=== PATIENT | female | born 1990 | race Caucasian/White ===

== ENCOUNTER 2017-04-15 08:14 | Inpatient (IN) ==
--- OUTSIDE RECORDS SUMMARY | 2017-04-15 08:19 | External Medical Summary | Continuity of Care Document ---
:1990 Author Organization [facility] Address [address] [place], [place] [id number] Phone Support Name Relationship Address Phone Christian Hernandez spouse [address] [phone] [place] [address] Allergies, Adverse Reactions, Alerts Substance Reaction Severity Status amoxicillin rash Unknown Active Medications Medication Instructions Dosage Effective Dates Status Comments (start - stop) Diclegis 10 mg-10 take 1 tablet by - Active mg tablet,delayed oral route every release day in the morning, 1 tablet in the mid-afternoon, and 2 tablets at bedtime butalbital-acetami take 1 - 2 capsule Not Available - Active nophen-caffeine 50 by oral route every mg-300 mg-40 mg 6 hours as needed capsule not to exceed 6 capsules per 24hrs Complete - Active 14 mg-400 mcg tablet Problems Condition Effective Dates (start - stop) Clinical Status Encntr for suprvsn of normal first - preg, third trimester 32 weeks gestation of - Encntr screen for infections w sexl - mode of transmiss Encounter for screening for oth - infec/parastc diseases Encntr for suprvsn of normal first - preg, first trimester Encounter for screening of - mother 9 weeks gestation of - Encntr for suprvsn of normal first - preg, second trimester Fam hx of congen malform, deformations - and chromsoml abnlt 22 weeks gestation of - Unspec ovarian cyst, unspec side - Fam hx of congen malform, deformations - and chromsoml abnlt 26 weeks gestation of - Unspec ovarian cyst, unspec side - Encntr for suprvsn of normal first - preg, second trimester 26 weeks gestation of - Oth noninflammatory disorders of vulva and perineum Encntr for kinesiologist exam (general) (routine) w abnormal findings Encounter for surveillance of contraceptive pills Maternal care for excess growth, - first trimester, unsp Encntr for suprvsn of normal first - preg, first trimester 13 weeks gestation of - Maternal care for excess growth, - second tri, unsp 19 weeks gestation of - Encntr for suprvsn of normal first - preg, second trimester 19 weeks gestation of - Encntr for suprvsn of normal first - preg, third trimester 29 weeks gestation of - Encntr for suprvsn of normal first - preg, third trimester 34 weeks gestation of - Initiation of Oral Contraceptives - Active Procedures Procedure Date Immuniz admnin, 1 vac, sngl/combo 19 Yrs + TDAP VACCINE >7 IM OB Visit No Charge Results Test Name Date and Time Measure Units Reference Range Abnormal Flag Comments Unknown Advance Directives Directive Yes / No Effective Date File Name Unknown Encounters Encounter Practice Location Reason(s) Diagnoses Date Provider Care Team Description For Visit Members [facility] Encntr for Saez Referring In Womens suprvsn of normal 8-201 Alexandra. Provider: [facility], first preg, third 7 700 Alexandra Saez PO Box [id number] weeks Medical K, 700 1522, gestation of [facility] [place], , [address] REYNOSO, 120, Louie 120, [id number], Rick Cabrera, [place] REYNOSO, tel:[phone]. [id number] , [place]. tel:[phone] tel: [phone] Christopher Cabrera Encntr for Antonino-2 Saez Referring In Womens suprvsn of normal 4-201 Alexandra. Provider: Daniel LIEBERMAN, first preg, third 7 700 Alexandra Saez PO Box [id number] weeks Medical , 700 1522, gestation of [facility], , [facility] Dr REYNOSO, 120, Louie 120, , Rick Cabrera, [place], [place], tel: [phone]. , [place]. tel: tel: [phone] Christopher Lisle Encntr for Antonino-0 Saez Referring In Womens suprvsn of normal 3-201 Alexandra. Provider: Daniel LIEBERMAN, first preg, third 7 700 Alexandra Saez PO Box [id number] weeks [facility], 700 1522, gestation of [facility], , [facility] Dr REYNOSO, 120, Louie 120, , Rick Cabrera, [place], [place], tel: [phone]. , [place]. tel: tel: [phone] Christopher Cabrera Unspec ovarian Griffin-1 Saez Referring In Womens cyst, unspec 4-201 Alexandra. Provider: Daniel LIEBERMAN, maximoEncntr for 7 700 Alexandra Saez PO Box suprvsn of normal Medical , 700 1522, [facility], [facility] second , [facility] Dr REYNOSO, [email or web address] weeks 120, Louie 120, , gestation of Rick Cabrera, [place], [place], tel: [phone]. , [place]. tel: tel: [phone] Christopher Cabrera Unspec ovarian Griffin-1 Saez Referring In Womens Ultrasound cyst, unspec 4-201 Alexandra. Provider: Daniel LIEBERMAN, Rigobertom hx of 7 700 Alexandra Saez PO Box congen malform, Medical , 700 1522, deformations and [facility], chromsoml [email or web address] , [facility] Dr REYNOSO, weeks gestation 120, Louie 120, , of Rick Cabrera, [place], [place], tel: [phone]. , [place]. tel: tel: [phone] Christopher Cabrera Encntr for December- Saez Referring In Womens suprvsn of normal 8-201 Alexandra. Provider: Daniel LIEBERMAN, first preg, 7 700 Alexandra Saez PO Box second Medical K, 700 1522, trimesterFam hx [facility], of congen , [facility] Dr REYNOSO, malform, 120, Louie 120, , deformations and Rick Cabrera, chromsoml [email or web address] [place], [place], tel: weeks gestation [phone]. of , [place]. tel: tel: [phone] Christopher Cabrera Encntr for Apr-2 Saez Referring In Womens suprvsn of normal 6-201 Alexandra. Provider: Daniel LIEBERMAN, first preg, 7 700 Alexandra Saez PO Box second Medical , 700 1522, [email or web address] weeks [facility] [place], gestation of Dr, [facility] Dr REYNOSO, 120, Louie 120, , Rick Cabrera, [place], [place], tel: [phone]. , [place]. tel: tel: [phone] Christopher Cabrera Maternal care for Apr-2 Saez Referring In Womens Ultrasound excess 6-201 Alexandra. Provider: Daniel LIEBERMAN, growth, second 7 700 Alexandra Saez PO Box tri, [id number] weeks Medical , 700 1522, gestation of [facility] [place], , [facility] Dr REYNOSO, 120, Louie 120, [id number], Rick Cabrera, [place], [place], tel: [phone]. , [place]. tel: tel: [phone] Christopher Cabrera Maternal care for Mar-1 Saez Referring In Womens excess 6-201 Alexandra. Provider: Daniel LIEBERMAN, growth, first 7 700 Alexandra Saez PO Box trimester, Medical K, 700 1522, unspEncntr for [facility], suprvsn of normal Dr, [facility] Dr REYNOSO, first preg, first 120, Louie 120, [id number], weeks Rick Cabrera, gestation of [place], tel: [phone]. , [place]. tel: tel: [phone] [facility] Rick [facility] screen for Sep- Saez Referring In Womens infections w sexl -201 Alexandra. Provider: Daniel LIEBERMAN, mode of 7 700 Alexandra Saez PO Box transmissEncounte Medical K, 700 1522, r for screening [facility] [place], for oth Dr, [facility] Dr REYNOSO, infec/parastc 120, Louie 120, , diseasesEncntr Rick Cabrera, for suprvsn of [place] REYNOSO, tel: normal first [phone]. preg, first , [place]. tel: trimesterEncounte tel: [phone] r for [id number] screening of mother9 weeks gestation of [facility] Ot Saez Referring In Womens noninflammatory -201 Alexandra. Provider: Daniel LIEBERMAN, disorders of 6 700 Alexandra Saez PO Box vulva and Medical K, 700 1522, perineumEncntr [facility] [place], for kinesiologist exam , [facility] Dr REYNOSO, (general) 120, Louie 120, [id number], (routine) w Rick Cabrera, abnormal [place] REYNOSO, tel: findingsEncounter [phone]. for surveillance , [place]. tel: of contraceptive tel: [phone] [facility] December- Saez Referring In Womens -201 Alexandra. Provider: Daniel LIEBERMAN, 5 700 Alexandra Saez PO Box Medical K, 700 1522, [place] [address], [facility] Dr REYNOSO, 120, Louie 120, [id number], Rick Cabrera, [place] REYNOSO, tel: [phone]. , [place]. tel: tel: [phone] Family History Family Member Diagnosis Age At Onset No family history of Pulmonary Embolism Maternal Grandfather Cardiovascular Disease No family history of Venous Thrombosis Paternal Grandfather Stroke No family history of Ovarian Cancer No family history of Uterine Cancer Paternal Grandmother Cardiovascular Disease Paternal Grandfather Cardiovascular Disease Maternal Grandmother Cancer, breast Paternal Grandfather Osteoporosis No family history of Colon Cancer Immunizations Vaccine Date Status Comments Tdap completed Source: New Immunization Record Influenza, injectable, completed Source: New Immunization Record quadrivalent, preservative free, 3 yrs or older MMR completed Note: Invalid documented admin date was NULL/NULL/2013. ; Source: Other Provider Td (adult) preservative free completed Note: Invalid documented admin date was NULL/NULL/2013. ; Source: Other Provider Payers Payer name Insurance type Covered democrat ID Authorization(s) BCBS Out Of [place] [id number] BCBS Out [place] [id number] BCBS [place] [id number] Social History Type Description Quantity Date Captured Alcohol Use Details No Caffeine Use Details Unknown Tobacco Use Status Unknown Smoking Status Never smoker Vital Signs Date / Height Weight BMI Pulse Blood Temperature Respiratory Body Head BMI Time: Rate Pressure Rate Surface Circumference percentile Area 147.70 21.8 134/87 2017 lbs 3 mm[Hg] 3:04 kg/m PM eter (2) Chief Complaint And Reason For Visit Unknown Chief Complaint And Reason For Visit Reason For Referral Reason For Referral Unknown Plan Of Care Date Type Action Status Appointment Josie Hernandez BOOKED Future Order: Radiology Order Ultrasound, OB Limited ([id number]) Ordered Future Order: Radiology Order Complete OB Ultrasound > 14 Ordered Weeks ([id number]) Date Type Problem Goal Intervention Status Start Date Unknown. History Of Present Illness Encounter Date Complaint History Of Present Illness This patient has no known history of present illness Functional Status Encounter Date Functional Assessment Cognitive Assessment Unknown Medications Administered Medication Instructions Dosage Effective Dates (start - stop) Status Comments Drug Treatment Unknown Instructions Date Instruction Additional Information gestational glucose lab screening HIV and other routine tests risk factors identified by history anticipated course of care nutrition and weight gain counseling, special diet toxoplasmosis precautions (cats / raw meat) exercise indications for ultrasound influenza vaccine environmental / work hazards travel tobacco (ask, advise, assess, assist and arrange) alcohol new ob handbook illicit / recreational drugs use of any medications (including supplements, vitamins, herbs, OTC drugs) smoking counseling domestic violence seat belt use genetic testing Zika virus assessment & precautions dentist, wt gain 25-35#
--- OUTSIDE RECORDS SUMMARY | 2017-04-15 08:19 | External Medical Summary | Continuity of Care Document ---
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 Maternal care for excess growth, - first [...] third trimester 29 weeks gestation of - 32 weeks gestation of - Encntr for suprvsn of normal first - preg, third trimester Encntr for suprvsn of normal first - preg, third trimester Encounter for screening of - mother 36 weeks gestation of - Initiation of Oral Contraceptives - Active Procedures Procedure Date OB Visit No Charge Results Test Name Date and Time Measure Units Reference Range Abnormal Flag Comments Unknown Advance Directives Directive Yes / No Effective Date File Name Unknown Encounters Encounter Practice Location Reason(s) Diagnoses Date Provider Care Team Description For Visit Members [facility] Encntr for Saez Referring In Womens suprvsn of normal 1-201 Alexandra. Provider: Daniel LIEBERMAN, first preg, third 7 700 Alexandra [facility], 700 1522, r for [facility] Karl, screening of Louie [address] REYNOSO, [id number] weeks 120, Louie 120, [id number], gestation of Rick Cabrera, [place] REYNOSO, tel:[phone]. , [place]. tel: tel: [phone] Christopher Cabrera Encntr for Mar-0 Saez Referring In Womens suprvsn of normal 8-201 Alexandra. Provider: Daniel LIEBERMAN, first preg, third 7 700 Alexandra Saez PO Box weeks Medical , 700 1522, gestation of [facility], , [facility] Dr REYNOSO, 120, Louie 120, [id number], Rick Cabrera, [place], [place], tel: [phone]. , [place]. tel: tel: [phone] Christopher Cabrera 32 weeks Antonino-2 Saez Referring In Womens gestation of 4-201 Alexandra. Provider: Daniel LIEBERMAN, pregnancyEncntr 7 700 Alexandra Saez PO Box for suprvsn of [facility], 700 1522, normal first [facility] Karl, preg, third , [facility] Dr REYNOSO, trimester 120, Louie 120, , Rick Cabrera, [place], [place], tel: [phone]. , [place]. tel: tel: [phone] [facility] Encntr for Feb-0 Saez Referring In Womens suprvsn of normal 3-201 Alexandra. Provider: Daniel LIEBERMAN, first preg, third 7 700 Alexandra Saez PO Box [id number] weeks Medical , 700 1522, gestation of [facility], , [facility] Dr REYNOSO, 120, Louie 120, [id number], Rick Cabrera, [place], [place], tel: [phone]. , [place]. tel: tel: [phone] Christopher Cabrera Unspec ovarian Griffin-1 Saez Referring In Womens cyst, unspec 4-201 Alexandra. Provider: Daniel LIEBERMAN, sideEncntr for 7 700 Alexandra Saez PO Box suprvsn of normal Medical K, 700 1522, first preg, [facility], second , [facility] Dr REYNOSO, [id number] weeks 120, Louie 120, , gestation of Rick Cabrera, [place], tel: [phone]. , [place]. tel: tel: [phone] Associates Rick Unspec ovarian Griffin-1 Saez Referring In Womens Ultrasound cyst, unspec 4-201 Alexandra. Provider: Daniel LIEBERMAN, sideFam hx of 7 700 Alexandra Saez PO Box congen malform, Medical , 700 1522, deformations and [facility], chromsoml [id number] , [facility] Dr REYNOSO, weeks gestation 120, Louie 120, , of Rick Cabrera, [place], tel: [phone]. , [place]. tel: tel: [phone] Christopher Cabrera Encntr for May-1 Saez Referring In Womens suprvsn of normal 8-201 Alexandra. Provider: Daniel LIEBERMAN, first preg, 7 700 Alexandra Saez PO Box second Medical , 700 1522, trimesterFam hx [facility], of congen , [facility] Dr REYNOSO, malform, 120, Louie 120, , deformations and Rick Cabrera, chromsoml [email or web address] [place], [place], tel:2 weeks gestation [phone]. of , [place]. tel: tel: [phone] Christopher Cabrera Encntr for Apr-2 Saez Referring In Womens suprvsn of normal 6-201 Alexandra. Provider: Daniel LIEBERMAN, first preg, 7 700 Alexandra Saez PO Box second Medical K, 700 1522, [id number] weeks [facility] Karl, gestation of Dr, [facility] Dr REYNOSO, 120, Louie 120, , Rick Cabrera, [place], [place], tel: [phone]. , [place]. tel: tel: [phone] Christopher Cabrera Maternal care for Apr-2 Saez Referring In Womens Ultrasound excess 6-201 Alexandra. Provider: Daniel LIEBERMAN, growth, second 7 700 Alexandra Saez PO Box tri, [id number] weeks Medical , 700 1522, gestation of [facility], , [facility] Dr REYNOSO, 120, Louie 120, , Rick Cabrera, [place] REYNOSO, tel: [phone]. , [place]. tel: tel: [phone] Christopher Cabrera Maternal care for Saez Referring In Womens excess -201 Alexandra. Provider: Health MIO, growth, first 7 700 Alexandra Saez PO Box trimester, Medical , 152, unspEncntr for [facility], suprvsn of normal , [facility] Dr REYNOSO, first preg, first 120, Louie 120, , [id number] weeks Rick Cabrera, gestation of [place] REYNOSO, tel: [phone]. , [place]. tel: tel: [phone] Christopher Cabrera Encntr screen for Sep- Saez Referring In Womens infections w sexl - Alexandra. Provider: Daniel LIEBERMAN, mode of 7 700 Alexandra Saez PO Box transmissEncounte Medical , 152, r for screening [facility], for oth , [facility] Dr REYNOSO, infec/parastc 120, Louie 120, , diseasesEncntr Rick Cabrera, for suprvsn of [place] REYNOSO, tel: normal first [phone]. preg, first , [place]. tel: trimesterEncounte tel: [phone] r for [id number] screening of mother9 weeks gestation of [facility] [place]- Saez Referring In Womens noninflammatory - Alexandra. Provider: Daniel LIEBERMAN, disorders of 6 700 Alexandra Saez PO Box vulva and Medical , 700 1522, perineumEncounter [facility], for surveillance , [facility] Dr REYNOSO, of contraceptive 120, Louie 120, [id number], pillsEncntr for Rick Cabrera, cryptological technician exam [place] REYNOSO, tel:[phone] (general) [phone]. (routine) w , [place]. tel: abnormal findings tel: [phone] [facility] Saez Referring In Womens 4-201 Alexandra. Provider: Daniel LIEBERMAN, 5 700 Alexandra Saez PO Box Medical K, 700 1522, [address], Louie [address] Dr [place], 120, Louie 120, [id number], Rick Cabrera, [place], tel: [phone]. , [place]. tel: tel: [phone] Family History Family Member Diagnosis Age At [...] Provider Payers Payer name Insurance type Covered alliance party ID Authorization(s) BCBS Out Of State [id number] BCBS Out Of [place] [id number] BCBS Out Of [place] [id number] Social History Type Description Quantity Date Captured Alcohol Use Details No Caffeine Use Details Unknown Tobacco Use Status Unknown Smoking Status Never smoker Vital Signs Date / Height Weight BMI Pulse Blood Temperature Respiratory Body Head BMI Time: Rate Pressure Rate Surface Circumference percentile Area 151.90 21.8 117/81 2017 lbs 3 mm[Hg] 3:14 kg/m PM eter (2) Chief Complaint And Reason For Visit Unknown Chief Complaint And Reason For Visit Reason For Referral Reason For Referral Unknown Plan Of Care Date Type Action Status Appointment Josie Hernandez BOOKED Future Order: Radiology Order Ultrasound, OB Limited ([id number]) Ordered Future Order: Radiology Order Complete OB Ultrasound > 14 Ordered Weeks ([id number]) Date Type Problem Goal Intervention Status Start Date Unknown. History Of Present Illness Encounter Date Complaint History Of Present Illness This patient has no known history of present illness Functional Status Encounter Date Functional Assessment Cognitive Assessment Unknown Medications Administered Medication Instructions Dosage Effective Dates (start - stop) Status Comments Drug Treatment Unknown Instructions Date Instruction Additional Information labor signs group B strep screening gestational glucose lab screening HIV and other [...]
--- OUTSIDE RECORDS SUMMARY | 2017-04-15 08:19 | External Medical Summary | Continuity of Care Document ---
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 Provider: Daniel LIEBERMAN, first preg, third 7 700 Alexandra Saez PO Box [id number] weeks Medical K, 700 1522, gestation of [facility], , [facility] [place], 120, Louie 120, [id number], Rick Cabrera, [place], tel:[phone] , [place]. tel: tel: [phone] Christopher Almazanr for Saez Referring In Womens suprvsn of normal 4-201 Alexandra. Provider: Daniel LIEBERMAN, first preg, third 7 700 Alexandra Saez PO Box weeks Medical , 700 1522, gestation of [facility], , [facility] [place], 120, Louie 120, [id number], [place], [place], tel:+ [phone]. , [place]. tel: tel: [phone] Christopher Cabrera Antonino-2 Saez In Womens 4-201 Alexandra. Daniel LIEBERMAN, 7 700 PO Box Medical 1522, [place], , [place], 120, , [place], [place], tel: [phone] , [place]. tel: [phone] Christopher [place] Encntr for Antonino-0 Saez Referring In Womens suprvsn of normal 3-201 Alexandra. Provider: Daniel LIEBERMAN, first preg, third 7 700 Alexandra Saez PO Box [id number] weeks Medical , 700 1522, gestation of [facility], , [facility] Dr REYNOSO, 120, Louie 120, , [place], [place], tel:+ [phone]. , [place]. tel: tel: [phone] Christopher Cabrera Unspec ovarian Griffin-1 Saez Referring In Womens cyst, unspec 4-201 Alexandra. Provider: Daniel LIEBERMAN, sideEncntr for 7 700 Alexandra Saez PO Box suprvsn of normal Medical K, 700 1522, first preg, [facility], second , [facility] Dr REYNOSO, [email or web address] weeks 120, Louie 120, , gestation of [place], [place], tel:[phone]. , [place]. tel: tel: [phone] Christopher Cabrera Unspec ovarian Griffin-1 Saez Referring In Womens Ultrasound cyst, unspec 4-201 Alexandra. Provider: Daniel LIEBERMAN, sideFam hx of 7 700 Alexandra Saez PO Box congen malform, Medical K, 700 1522, deformations and [facility], chromsoml [email or web address] , [facility] Dr REYNOSO, weeks gestation 120, Louie 120, , of Rick Cabrera, [place], [place], tel: [phone]. , [place]. tel: tel: [phone] Christopher Cabrera Encntr for May-1 Saez Referring In Womens suprvsn of normal 8-201 Alexandra. Provider: Health MIO, first preg, 7 700 Alexandra Saez PO Box second Medical K, 700 1522, trimesterFam hx [facility], of congen , [facility] Dr REYNOSO, malform, 120, Louie 120, , deformations and Rick Cabrera, chromso abnlt22 [place], [place], tel:+2 weeks gestation [phone]. of , [place]. tel: tel: [phone] Christopher Cab[place] Encntr for Apr-2 Saez Referring In Womens suprvsn of normal 6-201 Alexandra. Provider: Daniel LIEBERMAN, first preg, 7 700 Alexandra Saez PO Box second Medical K, 700 1522, [email or web address] weeks [facility], gestation of Dr, [facility] Dr REYNOSO, 120, Louie 120, , Rick Cabrera, [place]NOS[place], tel: [phone]. , [place]. tel: tel: [phone] Christopher Cabrera Maternal care for Apr-2 Saez Referring In Womens Ultrasound excess 6-201 Alexandra. Provider: Daniel LIEBERMAN, growth, second 7 700 Alexandra Saez PO Box tri, [email or web address] weeks Medical K, 700 1522, gestation of [facility], , [facility] Dr REYNOSO, 120, Louie 120, , Rick Cabrera, [place], [place], tel:+ [phone]. , [place]. tel: tel: [phone] Christopher Cabrera Maternal care for Mar-1 Saez Referring In Womens excess 6-201 Alexandra. Provider: Health PA, growth, first 7 700 Alexandra Saez PO Box trimester, Medical K, 700 1522, unspEncntr for [facility], suprvsn of normal , [facility] Dr REYNOSO, first preg, first 120, Louie 120, [id number], [id number] weeks Rick Cabrera, gestation of [place], tel: [phone]. , [place]. tel: tel: [phone] [facility] Rick Encntr screen for Sep- Saez Referring In Womens infections w sexl - Alexandra. Provider: Daniel LIEBERMAN, mode of 7 700 Alexandra Saez PO Box transmissEncounte Medical K, 700 1522, r for screening [facility], for oth Dr, [facility] Dr REYNOSO, infec/parastc 120, Louie 120, , diseasesEncntr Rick Cabrera, for suprvsn of [place] REYNOSO, tel: normal first [phone]. preg, first , [place]. tel: trimesterEncounte tel: [phone] r for [id number] screening of mother9 weeks gestation of [facility] Ot Saez Referring In Womens noninflammatory - Alexandra. Provider: Daniel LIEBERMAN, disorders of 6 700 Alexandra Saez PO Box vulva and Medical K, 700 1522, perineumEncntr [facility], for attorney lawyer exam , [facility] Dr REYNOSO, (general) 120, Louie 120, [id number], (routine) w Rick [place]rera, abnormal [place] REYNOSO, tel: findingsEncounter [phone]. for surveillance , [place]. tel: of contraceptive tel: [phone] [facility] December- Saez Referring In Womens -201 Alexandra. Provider: Daniel LIEBERMAN, 5 700 Alexandra Saez PO Box Medical K, 700 1522, [place] [address], [facility] Dr REYNOSO, 120, Louie 120, , Rick Cabrera, [place] REYNOSO, tel: [phone]. [phone] , . tel: tel: [phone] Family History Family Member Diagnosis Age At [...] Provider Payers Payer name Insurance type Covered libertarian ID Authorization(s) BCBS Out Of [place] [id number] BCBS Out [place] [id number] BCBS Out Of [place] [id number] Social History Type Description Quantity Date Captured Unknown Vital Signs Date / Height Weight BMI Pulse Blood Temperature Respiratory Body Head BMI Time: Rate Pressure Rate Surface Circumference percentile Area Unknown Chief Complaint And Reason For Visit Unknown Chief Complaint And Reason For Visit Reason For Referral Reason For Referral Unknown Plan Of Care Date Type Action Status Appointment Josie Hernandez BOOKED Future Order: Radiology Order Ultrasound, OB Limited ([id number]) Ordered Future Order: Radiology Order Complete OB Ultrasound > 14 Ordered Weeks ([id number]) Date Type Problem Goal Intervention Status Start [...]
--- OUTSIDE RECORDS SUMMARY | 2017-04-15 08:20 | External Medical Summary | Continuity of Care Document ---
:1990 Author Organization [facility] Address [address] [place], [place] [address] Phone Support Name Relationship Address Phone Christian Hernandez spouse [address] [phone] [place] [address] Allergies, Adverse Reactions, Alerts Substance Reaction Severity [...] - mother 36 weeks gestation of - Encntr screen for infections w sexl - mode of transmiss Encounter for screening for oth - infec/parastc diseases Encntr for suprvsn of normal first - preg, first trimester 9 weeks gestation of - Encounter for screening of - mother Encntr for suprvsn of normal first - preg, second trimester 22 weeks gestation of - Fam hx of congen malform, deformations - and chromsoml abnlt Unspec ovarian cyst, unspec side - 26 weeks gestation of - Fam hx of congen malform, deformations - and chromsoml abnlt Unspec ovarian cyst, unspec side - Encntr for suprvsn of normal first - preg, second trimester 26 weeks gestation of - Oth noninflammatory disorders of vulva and perineum Encounter for surveillance of contraceptive pills 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 [...] of normal first - preg, third trimester 37 weeks gestation of - Encntr for suprvsn of normal first - preg, third trimester 29 weeks gestation of - 32 weeks gestation of - Encntr for suprvsn of normal first - preg, third trimester 34 weeks gestation of - Encntr for suprvsn of normal first - preg, third trimester Encntr for suprvsn of normal first - preg, third trimester 38 weeks gestation of - Initiation of Oral Contraceptives - Active Procedures Procedure Date OB Visit No Charge Cult, pathgnc orgnsm, screen Results Test Name Date and Time Measure Units Reference Range Abnormal Flag Comments Panel Description: CULTURE, GROUP B STREP WITH SUSCEPTIBILITY CULTURE, GROUP B STREP 08:14:00 SEE NOTE CULTURE, GROUP B STREP WITH SUSCEPTIBILITY WITH SUSCEPTIBILITY MICRO NUMBER: [id number] TEST STATUS: FINAL SPECIMEN SOURCE: VAGINAL/ANORECTAL SPECIMEN QUALITY: ADEQUATE RESULT: No group B Streptococcus isolated COMMENT: Specimen exceeds stability, interpret with Caution. Tested per client request.Test performed at [facility] [id number] [place] [address]Ytxbcmpb: HARJINDER MCLAIN DO,MPH Advance Directives Directive Yes / No Effective Date File Name Unknown Encounters Encounter Practice Location Reason(s) Diagnoses Date Provider Care Team Description For Visit Members Christopher [place] Encntr for Sep-0 Saez Referring In Womens suprvsn of normal 5-201 Alexandra. Provider: Health [place], first preg, third 7 700 Alexandra Saez PO Box [id number] weeks [facility], 700 1522, gestation of [facility], , [facility] Dr REYNOSO, 120, Louie 120, , Rick Cabrera, [place] REYNOSO, tel: [phone]. , [place]. tel: tel: [phone] Christopher Almazanr for Aug-2 Saez Referring In Womens suprvsn of normal 9-201 Alexandra. Provider: Health IMO, first preg, third 7 700 Alexandra Saez PO Box [id number] weeks Medical , 700 1522, gestation of [facility], , [facility] Dr REYNOSO, 120, Louie 120, , Rick Cabrera, [place] RE[place]NOS[place], tel: [phone]. , [place]. tel: tel: [phone] Christopher [place] Encntr for Aug-2 Saez Referring In Womens suprvsn of normal 1-201 Alexandra. Provider: Health PA, first preg, third 7 700 Alexandra Saez PO Box trimesterEncounte Medical , 700 1522, r for [place] [address], screening of , [facility] Dr REYNOSO, weeks 120, Louie 120, , gestation of Rick [place], [place], tel: [phone]. , [place]. tel: tel: [phone] Christopher Cabrera 34 weeks Aug-0 Saez Referring In Womens gestation of 8-201 Alexandra. Provider: Daniel LIEBERMAN, pregnancyEncntr 7 700 Alexandra Saez PO Box for suprvsn of Medical , 700 1522, normal first [facility], preg, third , [facility] Dr REYNOSO, trimester 120, Louie 120, , [place], [place], tel: [phone]. , [place]. tel: tel: [phone] Christopher Cabrera 32 weeks Antonino-2 Saez Referring In Womens gestation of 4-201 Alexandra. Provider: Daniel LIEBERMAN, pregnancyEncntr 7 700 Alexandra Saez PO Box for suprvsn of [facility], 700 1522, normal first [facility], preg, third , [facility] Dr REYNOSO, trimester 120, Louie 120, , Rick [place], [place], [place], tel: [phone]. , [place]. tel: tel: [phone] [facility] Encntr for Feb-0 Saez Referring In Womens suprvsn of normal 3-201 Alexandra. Provider: Daniel LIEBERMAN, first preg, third 7 700 Alexandra Saez PO Box [id number] weeks Medical , 700 1522, gestation of [facility], Dr, [facility] Dr REYNOSO, 120, Louie 120, , [place], [place], tel: [phone]. , [place]. tel: tel: [phone] Christopher Cabrera Unspec ovarian Griffin- Saez Referring In Womens cyst, unspec 4-201 Alexandra. Provider: Daniel LIEBERMAN, sideEncntr for 7 700 Alexandra Saez PO Box suprvsn of normal Medical , 700 1522, first preg, [place] [address], second Dr, [facility] Dr REYNOSO, [email or web address] weeks 120, Louie 120, , gestation of Rick Cabrera, [place], [place], tel: [phone]. , [place]. tel: tel: [phone] Christopher Cabrera Unspec ovarian Griffin-1 Saez Referring In Womens Ultrasound cyst, unspec 4-201 Alexandra. Provider: Daniel LIEBERMAN, side26 weeks 7 700 Alexandra Saez PO Box gestation of Medical , 700 1522, pregnancyFam hx [facility], of congen , [facility] Dr REYNOSO, malform, 120, Louie 120, [id number], deformations and Rick Cabrera, chromsoml abnlt [place], tel: [phone]. , [place]. tel: tel: [phone] [facility] Encntr for May-1 Saez Referring In Womens suprvsn of normal 8-201 Alexandra. Provider: Daniel LIEBERMAN, first preg, 7 700 Alexandra Saez PO Box second Medical , 700 1522, [id number] weeks [facility], gestation of , [facility] Dr REYNOSO, pregnancyFam hx 120, Louie 120, [id number], of congen Rick Cabrera, malform, [place], [place], tel: deformations and [phone]. chromsoml abn , [place]. tel: tel: [phone] Christopher Cab[place] Encntr for Apr-2 Saez Referring In Womens suprvsn of normal 6-201 Alexandra. Provider: Daniel LIEBERMAN, first preg, 7 700 Alexandra Saez PO Box second Medical , 700 1522, [id number] weeks [facility], gestation of , [facility] Dr REYNOSO, 120, Louie 120, [id number], Rick Cabrera, [place]YNOSO, tel: [phone]. , [place]. tel: tel: [phone] Christopher Cabrera Maternal care for Apr-2 Saez Referring In Womens Ultrasound excess 6-201 Alexandra. Provider: Daniel LIEBERMAN, growth, second 7 700 Alexandra Saez PO Box tri, [id number] weeks Medical , 700 1522, gestation of [facility], , [facility] Dr REYNOSO, 120, Louie 120, [id number], Rick Cab[place], [place]NOS[place], tel: [phone]. , [place]. tel: tel: [phone] Christopher Cabrera Maternal care for Oct- Saez Referring In Womens excess - Alexandra. Provider: Daniel LIEBERMAN, growth, first 7 700 Alexandra Saez PO Box trimester, Medical , 700 1522, unspEncntr for [facility], suprvsn of normal , [facility] Dr REYNOSO, first preg, first 120, Louie 120, [id number], [id number] weeks Rick Cabrera, gestation of [place] REYNOSO, tel:+ [phone]. , [place]. tel: tel: [phone] Christopher [place] Encntr screen for Sep- Saez Referring In Womens infections w sexl - Alexandra. Provider: Daniel LIEBERMAN, mode of 7 700 Alexandra Saez [facility] , 700 1522, r for screening [facility], for oth Dr, [facility] Dr REYNOSO, infec/parastc 120, Louie 120, , diseasesEncntr Rick Cabrera, for suprvsn of [place] REYNOSO, tel: normal first [phone]. preg, first , [place]. tel: trimester9 weeks tel:[phone] [facility] [id number] [facility] of mother [facility] Ot Saez Referring In Womens noninflammatory - Alexandra. Provider: Daniel LIEBERMAN, disorders of 6 700 Alexandra Saez PO Box vulva and Medical , 700 1522, perineumEncounter [facility], for surveillance , [facility] Dr REYNOSO, of contraceptive 120, Louie 120, , pillsEncntr for Rick Cabrera, ruling technician exam [place] REYNOSO, tel: (general) [phone]. (routine) w , [place]. tel: abnormal findings tel: [phone] [facility] December-0 Saez Referring In Womens 4-201 Alexandra. Provider: Daniel LIEBERMAN, 5 700 Alexandra Saez PO Box [facility], 700 1522, [place] [facility] Dr Karl, [facility] Dr [place], 120, Louie 120, [id number], Rick Cabrera, [place] REYNOSO, tel: [phone]. [phone] , [place]. tel: tel: [phone] Family History Family Member Diagnosis Age At [...] Provider Payers Payer name Insurance type Covered republican ID Authorization(s) BCBS Out Of State [id number] BCBS Out Of [place] [id number] BCBS Out Of [place] [id number] Social History Type Description Quantity Date Captured Alcohol Use Details No Caffeine Use Details Unknown Tobacco Use Status Unknown Smoking Status Never smoker Vital Signs Date / Height Weight BMI Pulse Blood Temperature Respiratory Body Head BMI Time: Rate Pressure Rate Surface Circumference percentile Area 156.20 21.8 122/ lbs 3 mm[Hg] 3:57 kg/m PM eter (2) Chief Complaint And Reason For Visit Unknown Chief Complaint And Reason For Visit Reason For Referral Reason For Referral Unknown Plan Of Care Date Type Action Status Appointment Josie Hernandez BOOKED Future Order: Radiology Order Ultrasound, OB Limited ([id number]) Ordered Future Order: Radiology Order Complete OB Ultrasound > 14 Ordered Weeks ([id number]) Date Type Problem Goal Intervention Status Start [...] tobacco (ask, advise, assess, assist and arrange) new ob handbook alcohol illicit / recreational drugs use of any medications (including supplements, vitamins, herbs, OTC drugs) smoking counseling domestic violence seat belt use genetic testing Zika virus assessment & precautions dentist, wt gain 25-35#
--- OUTSIDE RECORDS SUMMARY | 2017-04-15 08:20 | External Medical Summary | Continuity of Care Document ---
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) w abnormal findings Maternal care for excess growth, - first trimester, unsp Encntr for suprvsn of normal first - preg, first trimester 13 weeks gestation of - Maternal care for excess growth, - second tri, unsp 19 weeks gestation of - Encntr for suprvsn of normal first - preg, second trimester 19 weeks gestation of - Initiation of Oral Contraceptives - Active Procedures Procedure Date OB Visit No Charge Results Test Name Date and Time Measure Units Reference Range Abnormal Flag Comments Unknown Advance Directives Directive Yes / No Effective Date File Name Unknown Encounters Encounter Practice Location Reason(s) Diagnoses Date Provider Care Team Description For Visit Members [facility] Encntr for Saez Referring In Womens suprvsn of normal 3-201 Alexandra. Provider: Daniel LIEBERMAN, first preg, third 7 700 Alexandra Saez [address] [id number] weeks Medical , 700 1522, gestation of [facility] , [facility] Dr REYNOSO, 120, Louie 120, , Rick Cabrera, [place] REYNOSO, [place], tel:[phone]. [id number] , [place]. tel: tel: [phone] Christopher Cabrera Unspec ovarian Griffin- Saez Referring In Womens cyst, unspec 4-201 Alexandra. Provider: maximo TamezEncntr for 7 700 Alexandra Saez PO Box suprvsn of normal Medical K, 700 1522, first preg, [facility], second , [facility] Dr REYNOSO, [id number] weeks 120, Louie 120, [id number], gestation of Rick Cabrera, [place], [place], tel: [phone]. , [place]. tel: tel: [phone] Associates Rick Unspec ovarian Griffin-1 Saez Referring In Womens Ultrasound cyst, unspec 4-201 Alexandra. Provider: Daniel LIEBERMAN, sideFam hx of 7 700 Alexandra Saez PO Box congen [facility], Medical , 700 1522, deformations and [facility], chromsoml [id number] , [facility] Dr REYNOSO, weeks gestation 120, Louie 120, , of Rick Cabrera, [place], [place], tel: [phone]. , [place]. tel: tel: [phone] Christopher Cabrera Encntr for May-1 Saez Referring In Womens suprvsn of normal 8-201 Alexandra. Provider: Daniel LEIBERMAN, first preg, 7 700 Alexandra Saez PO Box [facility] Medical , 700 1522, trimesterFam hx [facility], of congen , [facility] Dr REYNOSO, malform, 120, Louie 120, , deformations and Rick Cabrera, chromsoml [id number] ED[place]ARDO, EDGARDO, tel:2 weeks gestation [phone]. of , [place]. tel: tel: [phone] Christopher Cabrera Encntr for Apr-2 Saez Referring In Womens suprvsn of normal 6-201 Alexandra. Provider: Daniel LIEBERMAN, first preg, 7 700 Alexandra Saez PO Box second Medical K, 700 1522, weeks [facility], gestation of Dr, [facility] Dr REYNOSO, 120, Louie 120, [id number], Rick Cabrera, [place] EDGARD[place], EDGARD[place], tel: [phone]. , [place]. tel: tel: [phone] Christopher Cabrera Maternal care for Apr-2 Saez Referring In Womens Ultrasound excess 6-201 Alexandra. Provider: Daniel LIEBERMAN, growth, second 7 700 Alexandra Saez PO Box tri, [id number] weeks Medical , 700 1522, gestation of [facility], , [facility] Dr REYNOSO, 120, Louie 120, , Rick Cabrera, [place] REYNOSO, tel: [phone]. , [place]. tel: tel: [phone] Christopher Cabrera Maternal care for Oct- Saez Referring In Womens excess -201 Alexandra. Provider: Health [facility], growth, first 7 700 Alexandra Saez PO Box trimester, Medical , 152, unspEncntr for [facility], suprvsn of normal , [facility] Dr REYNOSO, first preg, first 120, Louie 120, , [id number] weeks Rick Cabrera, gestation of [place] REYNOSO, tel: [phone]. , [place]. tel: tel: [phone] Christopher Cabrera Encntr screen for Sep- Saez Referring In Womens infections w sexl -201 Alexandra. Provider: Daniel LIEBERMAN, mode of 7 700 Alexandra Saez PO Box transmiss[facility] Medical , 152, r for screening [facility], for oth , [facility] Dr REYNOSO, infec/parastc 120, Louie 120, [id number], diseasesEncntr Rick Cabrera, for suprvsn of [place]GARDO REYNOSO, tel: normal first [phone]. preg, first , [place]. tel: trimesterEncounte tel: [phone] r for [id number] screening of mother9 weeks gestation of [facility]- Saez Referring In Womens noninflammatory -201 Alexandra. Provider: Daniel LIEBERMAN, disorders of 6 700 Alexandra Saez PO Box vulva and Medical , 700 1522, perineumEncounter [facility], for surveillance , [facility] Dr REYNOSO, of contraceptive 120, Louie 120, [id number], pillsEncntr for Rick Cabrera, obstetrics/gynecology nurse exam EDGARDO REYNOSO, tel: (general) [phone]. (routine) w , [place]. tel: abnormal findings tel: [phone] [facility] Saez Referring In Womens 4-201 Alexandra. Provider: Daniel LIEBERMAN, 5 700 Alexandra Saez PO Box Medical K, 700 1522, [facility] Karl, [address] [facility] [address] [place], 120, Louie 120, [id number], Rick Cabrera, EDGARDO, ED[place]ARD[place], tel: [phone]. , [place]. tel: tel: [phone] Family History Family Member Diagnosis Age At [...] Colon Cancer Immunizations Vaccine Date Status Comments Influenza, injectable, completed Source: New Immunization Record quadrivalent, preservative free, 3 yrs or older MMR completed Note: Invalid documented admin date was NULL/NULL/2013. ; Source: Other Provider Td (adult) preservative free completed Note: Invalid documented admin date was NULL/NULL/2013. ; Source: Other Provider Payers Payer name Insurance type Covered green party ID Authorization(s) [employer] Out Of [place] [id number] [employer] [place] [id number] Social History Type Description Quantity Date Captured Alcohol Use Details No Caffeine Use Details coffee 1 cup per day Tobacco Use Status Never smoked tobacco Smoking Status Never smoker Vital Signs Date / Height Weight BMI Pulse Blood Temperature Respiratory Body Head BMI Time: Rate Pressure Rate Surface Circumference percentile Area 146.10 21.8 102/ lbs 3 mm[Hg] 3:21 kg/m PM eter (2) Chief Complaint And Reason For Visit Unknown Chief Complaint And Reason For Visit Reason For Referral Reason For Referral Unknown Plan Of Care Date Type Action Status Appointment Josie Hernandez BOOKED Future Order: Radiology Order Ultrasound, OB Limited ([id number]) Ordered Future Order: Radiology Order Complete OB Ultrasound > 14 Ordered Weeks ([id number]) Date Type Problem Goal Intervention Status Start [...] influenza vaccine environmental / work hazards travel new ob handbook tobacco (ask, advise, assess, assist and arrange) alcohol illicit / recreational drugs use of any medications (including supplements, vitamins, herbs, OTC drugs) smoking counseling domestic violence seat belt use genetic testing Zika virus assessment & precautions dentist, wt gain 25-35#
[2017-04-15] MEDS ORDERED: CARBOPROST 250 MCG/ML INJECTION IM PRN (08:36)
[2017-04-15] MEDS ORDERED: MAG-AL + SIM ORAL LIQUID 30ml PO PRN (08:36)
[2017-04-15] MEDS ORDERED: LIDOCAINE 1% (10mg/ml) 2mL INJ PF SDV ID PRN (08:36)
[2017-04-15] MEDS ORDERED: ACETAMINOPHEN 500 MG TABLET PO PRN (08:36)
[2017-04-15] MEDS ORDERED: METHYLERGONOVINE 0.2 MG/ML INJECTION IM PRN (08:36)
[2017-04-15] MEDS: LR 1,000 ML IV PRN ×3 (08:56→13:05)
[2017-04-15 08:57] VITALS: BMI 27.6
[2017-04-15] MEDS ORDERED: NALOXONE 0.4 MG/ML INJECTION IVP PRN (10:38)
[2017-04-15] MEDS ORDERED: ONDANSETRON 4 MG/2 ML INJECTION IVP PRN (10:38)
[2017-04-15] MEDS ORDERED: ROPIVACAINE 1% 10MG/ML INJ 200 MG, SUFentanil 50 MCG in NS 100 ML EPI PRN (10:38)
[2017-04-15] MEDS ORDERED: DiphenhydrAMINE 50 MG/ML INJECTION IVP PRN (10:38)
--- NOTE | 2017-04-15 10:38 | Anesthesia Preoperative Report ---
Anesthesia Epidural/Spinal Rec - Date and Time Date: 04/15/17 Preoperative Diagnosis: G1:P0 Procedure: Labor Epidural Plan: Epidural - Vital Signs NPO since: midnight /Para: P:0 Heart Rate: 63 (inches) - Medictaions & Allergies Inpatient Medications: Current Medications Acetaminophen (Tylenol) 500 - 1,000 mg PO Q4H PRN PRN Reason: Pain Al Hydroxide/Mg Hydroxide (Maalox Plus) 30 ml PO Q3H PRN PRN Reason: Indigestion Calcium Carbonate (Tums) 500 - 1,000 mg PO Q2H PRN PRN Reason: Indigestion Carboprost Tromethamine (Hemabate) 250 mcg IM O PRN PRN Reason: .Downtime Lactated Ringer's (Lactated Ringers) 1,000 mls @ 125 mls/hr IV .Q8H PRN Last Admin: 04/15/17 08:56 Dose: 125 mls/hr Lidocaine HCl (Xylocaine-Mpf 1% Vial) 0.2 mg ID O PRN PRN Reason: IV Start Methylergonovine Maleate (Methergine) 0.2 mg IM O PRN Misoprostol (Cytotec) 800 mcg MI ONCE PRN Allergies/Adverse Reactions: Allergies Allergy/AdvReac Type Severity Reaction Status Date / Time amoxicillin Allergy Verified 04/10/17 12:28 - Home Medications Home Medications: Home Medications Medication Instructions Recorded Confirmed Type Doxylamine/Pyridoxine HCl (B6) 1 each PO DAILY 04/10/17 04/10/17 History [Jarvis Sellers 10-10 mg Tablet] Vit 108/Iron/Folic AC 1 tab PO DAILY 04/10/17 04/10/17 History [ One Tablet] - Medical History Other History: Reports: Now - Surgical History Anesthesia Reactions: None Hx Family Anesthesia Reaction: No History of Motion Sickness: No - Social History Second Hand Exposure: No Substance Use Type: does not use Alcohol Intake Frequency: does not drink Hx Chewing Tobacco Use: No - Pertinent Findings Lab Data: CBC and BMP 04/15/17 08:50 EKG Rhythm: Normal Sinus Rhythm - Physical Exam Respiratory Exam: lungs clear Cardiovascular Exam: regular rate and rhythm - Airway Assessment Mallampati Score: II TMD: 3 Fingerbreadths Neck Extension: good Overall Assessment: may be difficult intubation - ASA ASA Score: 2 - Discussion Discussion: Discussed risks/options/alternatives of anesthesia and questions answered. Patient consents. Nursing pain assessment noted. Anesthesia Discussion: spouse Attestation Statement: Prior to the delivery of any anesthetic medication, I examined the patient, developed the plan, obtained the patient's consent and discussed the risk and benefits of the procedure with the patient/guardian.
[2017-04-15] MEDS: CALCIUM CARBONATE Chewable 500mg TABLET PO PRN ×2 (12:28→21:21)
[2017-04-15] MEDS ORDERED: DiphenhydrAMINE 25 MG CAPSULE PO PRN (17:31)
[2017-04-15] MEDS ORDERED: OXYTOCIN DRIP 30 UNIT/500 ML ML IV SCH (17:31)
[2017-04-15] MEDS ORDERED: HYDROCORTISONE 2.5% CREAM 30gm RECTALLY PRN (17:31)
[2017-04-15] MEDS: IBUPROFEN 800 MG TABLET PO PRN (21:29)
[2017-04-16] MEDS: HYDROCODONE/APAP 5mg/325mg TABLET PO PRN ×3 (03:40→13:21)
--- NOTE | 2017-04-16 07:05 | Labor and Delivery Note ---
DATE OF DELIVERY 04/15/2017 DELIVERY NOTE Josie is a 26-year-old 1 at 39 weeks 2 days gestational age who presented to [facility] with complaints of contractions and was found to be 3 cm dilated. She was admitted in labor and received an epidural. Her membranes were ruptured artificially returning moderate meconium-stained fluid. She progressed nicely throughout labor and pushed for approximately an hour-and- a-half. Her temperature got up to 99.9. Baby did not become tachycardic, so we did not start mom on antibiotics. She had a spontaneous vaginal delivery in the OA position of a viable male , Apgars 8/9, weight 3144 g, name "Kit." Baby was vigorous at delivery, so he was placed on mom's abdomen and the cord clamping was delayed for more than 2 minutes. The placenta delivered spontaneously. She had a small right periurethral laceration that was repaired as well as a second-degree perineal laceration that extended up part of the left vagina. Mom and baby tolerated the delivery well. REDDY
--- NOTE | 2017-04-16 08:16 | OB/GYN Progress Note ---
OB-PP Progress Note - General PPD1 - Subjective Date: 04/16/17 Lochia: Minimal Pain: contolled Voiding: voiding Nausea or Vomiting Present: No - Objective Vital Signs: Last Vital Signs Temp 97.9 F 04/16/17 04:57 Pulse 85 04/16/17 04:57 Resp 16 04/16/17 04:57 BP 114/65 04/16/17 04:57 Pulse Ox 95 04/16/17 04:57 Urine Output: good General: alert and oriented Respiratory: non-labored Abdomen: fundus firm Extremities: non-tender Edema: none Laboratory: Laboratory Results - last 24 hr 04/15/17 04/15/17 08:50 08:50 WBC 12.8 H RBC 4.78 Hgb 14.6 Hct 41.7 MCV 87.2 MCH 30.5 MCHC 35.0 RDW Std Deviation 39.0 Plt Count 195 MPV 11.7 Blood Type O Positive Antibody Screen Negative - Assessment Assessment: - Plan Plan: routine care (plans for dismissal tomorrow. )
[2017-04-16] MEDS: IBUPROFEN 800 MG TABLET PO PRN ×2 (08:54→17:35)
[2017-04-16] MEDS ORDERED: DOCUSATE CALCIUM 240 MG CAPSULE PO SCH (09:00)
--- NOTE | 2017-04-16 09:53 | Anesthesia Postoperative Note ---
- Date and Time Date: 04/16/17 Time: 09:53 - Status Patient Participated in Evaluation: Patient Participated in Person Vital Signs: Temperature 97.9 F 04/16/17 04:57 Pulse Rate 85 04/16/17 04:57 Respiratory Rate 16 04/16/17 04:57 Blood Pressure 114/65 04/16/17 04:57 Pulse Oximetry 95 04/16/17 04:57 Respiratory Function: Airway Patent Cardiovascular Function: Regular Pulse EKG Rhythm: Normal Sinus Rhythm Mental Status: Alert and Oriented Pain Intensity: 0 Hydration: Taking PO Fluids Complications During Recover: None Apparent - Follow-Up Instructions Instructions: Per Surgeon
[2017-04-17] MEDS: HYDROCODONE/APAP 5mg/325mg TABLET PO PRN (01:31)
[2017-04-17] MEDS: IBUPROFEN 800 MG TABLET PO PRN ×2 (01:32→10:57)
[2017-04-17 01:40] VITALS: RESP 16
[2017-04-17 06:11] VITALS: BP 109/65; PULSE 70; TEMP 97.7; O2SAT 100
--- NOTE | 2017-04-17 08:17 | OB/GYN Progress Note ---
OB-PP Progress Note - General PPD2 Maternal Group B Strep: Negative Maternal blood type: O+ Maternal Rubella Status: Immune - Subjective Date: 04/17/17 Lochia: Minimal Pain: contolled Voiding: voiding - Objective Vital Signs: Last Vital Signs Temp 97.7 F 04/17/17 05:30 Pulse 70 04/17/17 05:30 Resp 16 04/17/17 05:30 BP 109/65 04/17/17 05:30 Pulse Ox 100 04/17/17 05:30 Urine Output: good General: alert and oriented - Assessment Assessment: - Plan Plan: routine care, discharge home, continue PNV
== END 2017-04-17 11:00 | disposition home or self-care (01) | DRG 775 ==
LOC: OBOBS 08:14 → MC 08:16
PROVIDERS: ADMIT Obstetrics & Gynecology; ATTEND Obstetrics & Gynecology